=== PATIENT | female | born 1980 | race Caucasian/White ===

== ENCOUNTER → 2018-09-15 10:30 | Outpatient (CLI) | payer MEDICAID, SELFPAY ==
[2018-09-15 10:30] VITALS: BMI 25.7
[2018-09-18 09:51] LABS: HPV APTIMA, High Risk Negative (Negative)
--- OUTSIDE RECORDS SUMMARY | 2018-10-28 11:08 | XMS RPT_ITS ---
:1980 Author Organization OHIP Care Team Providers Name Role Phone DONALDO WARD CNP Attending Unavailable GODDARD DO, EMEKA Primary Care Unavailable DONALDO WARD CNP Attending Unavailable GODDARD DO, EMEKA Primary Care Unavailable GODDARD, EMEKA L Attending Unavailable GODDARD, EMEKA L Referring Unavailable GODDARD, EMEKA L Referring Unavailable Petey, Sharita Attending Unavailable Harlan, Sharita Referring Unavailable Goddard, Emeka Primary Care Unavailable Petey, Sharita Attending Unavailable Harlan, Sharita Referring Unavailable Goddard, Emeka Primary Care Unavailable Petey, Sharita Attending Unavailable Goddard, Emeka Referring Unavailable PROBLEMS PROBLEMS DATE TYPE CONDITION / CODE ATTENDING STATUS SOURCE 09/15/2018 Unknown Z12.4 - Encounter Petey, Sharita Active [place] for screening for Community malignant neoplasm [facility] cervix / Repository Z12.4(ICD-10) 09/15/2018 Unknown N92.1 - Excessive Harlan, Sharita Active [place] and frequent Community menstruation with [facility] irregular cycle / Repository N92.1(ICD-10) 09/15/2018 Unknown Z87.410 - Personal HarlanSharita farr Active [place] history of Community cervical dysplasia [facility] / Z87.410(ICD-10) Repository 07/23/2018 Active Unspecified NA Active [place] ovarian cyst, [facility] right side / [place] N83.201(ICD-10) Repository 02/13/2013 Active Hyperlipidemia, NA Active [facility] [place] unspecified / [facility] E78.5(ICD-10) [place] Repository 07/26/2018 Active Other fatigue / NA Active [place] R53.83(ICD-10) [facility] [place] Repository 12/17/2017 Admitting Fever, unspecified YOUNG DONALDO CORONADO Active [facility] Diagnosis / R50.9(ICD-10) [facility] Repository PROCEDURES PROCEDURES No Procedure Records FoundRESULTS RESULTS CNOV Observed: 10/04/2018 Status: COMPLETED Source: [place] 2:00 PM [facility] REPOSITORY Office Visit (UCWSTR) LING CHO ([id number]) 1980 F Date Time Provider Department 10/04/18 2:00 PM LILY CLARK (IVONNE) [facility] During your visit today, we recorded the following information about you: Temperature Pulse Respiration Blood pressure 98.3 degrees 94/minute 18/minute 120/80 Weight Last Period 64.4 kg 09/19/18 Lily Clark APRN.CNP 10/04/2018 2:24 PM Signed CC: Patient presents with: Cough Wheezing HPI: Ling Cho is a 38 year old female who presents to the office with complaint of respiratory symptoms for 5 days. Symptoms are worsening Associated symptoms includes nasal congestion, rhinorrhea, headache, cough and wheezing. Denies fever and dyspnea. Treatments tried include Guaifenesin/Mucinex with minor relief of symptoms. Sick contacts: unknown. History of asthma, frequent episodes of bronchitis, chronic bronchitis, bronchiectasis or COPD: No Smoker: Yes Seasonal/environmental allergies: No The ROS is otherwise negative. The patient's pmh, medications, allergies, and past visits are reviewed. PHYSICAL EXAM: BP 120/80 Pulse 94 Temp 36.8 ?C (98.3 ?F) (Left Tympanic) Resp 18 Wt 64.4 kg (142 lb) LMP 09/19/2018 (Approximate) SpO2 98% BMI 25.56 kg/m? General appearance: tired/ill appearing, in no acute distress Head: Normocephalic Eyes: conjunctiva pink and moist, no icterus, sclera white, non-injected Ears: Right ear: External ear/canal- Normal, TM - clear with good landmarks. Left ear: External ear/canal- Normal, TM - clear with good landmarks Nose: clear, no sinus tenderness. Oropharynx:No erythema, exudates or tonsillar hypertrophy. Neck:supple and positive findings: few small anterior cervical nodes Heart: Negative. RRR without obvious murmur, gallop, or rubs. No ectopy. Lungs: wheezing diffusely, no rales ASSESSMENT/PLAN: 1. Acute bronchitis, unspecified organism - ICD9: 466.0, ICD10: J20.9 - Discussed viral etiology and rationale for treatment. - Encouraged to increase fluids, rest, humidifier, expect to cough 2-3 weeks - Pharmacologic treatment: Prednisone 40mg qd x 5d. Side effects discussed in detail with patient including elevated blood sugars and GI irritation/bleeding., Albuterol aerosol 90 mcg IH - Symptomatic treatment prn analgesia and OTC cough/cold medication - Follow up in 1-2 weeks if symptoms do not resolve or they worsen with onset of onset of new fever, localized chest pains and new headache with increase in nasal congestion/drainage Prescription instructions reviewed with patient as applicable. Potential red flag symptoms discussed with the patient. Reviewed appropriate action plan to take if red flag symptoms occur. Patient agreeable to treatment plan. CASIE Meza APRN.CNP 10/04/2018 2:08 PM Signed Bronchitis is not usually treated with antibiotic medicines. That?s because bronchitis is almost always caused by a virus, and antibiotics only kill bacteria?not viruses. 1.) Get more rest than you usually do - this will speed your recovery. If you push hard with your usual busy schedule, you will be sicker longer. 2.) Drink a lot of water - enough to make you urinate every 2-3 hours (your urine should be a light yellow color). This helps thin the phlegm and sooth the airways. Gatorade (G2) is less in sugar and replaces your electrolytes if not eating well. 3.) Run a cool mist humidifier in your bedroom on high with the door closed. This is a natural way to decongest, and it helps lessen scratchy throats, nasal stuffiness and coughs. A good brand is [employer], which can be found at [employer] or [employer]. This is especially important if you do not have a humidifier on your furnace. 4) For cough-Mucinex 600-1200mg twice daily(plain) may help thin secretions so they are easier to cough up. May also use Robitussin cough syrup as needed (without DM). Those with high blood pressure may take Coricidin HBP. 5) For SOB/wheezing: Albuterol inhaler (if prescribed), follow prescription instructions. This medication helps by relaxing muscles in the airways and increasing air flow to the lungs 6) Prednisone (if prescribed): This is an anti-inflammatory medication which will help calm the inflamed bronchioles, increasing air flow to the lungs and reducing cough Cough following bronchitis can last up to 4-6 weeks but should slowly improve. If cough worsens or lasts longer than 4 weeks please call office at [phone] Referring Provider: SELF [[id number]] Allergies As of Date: 10/04/2018 Noted Allergy Reaction SEASONAL ALLERGIES 03/05/2013 14 - Other: See Comments Comments: rhinorrhea VICODIN (HYDROCODONE-ACETAMINOPHE*08/30/2009 8 - GI Upset Date Reviewed: 10/04/2018 Reviewed by: Lesley Vincent Ma - Fully Assessed Reason for Visit: Cough [28] Wheezing [181] Primary Visit Diagnosis:Acute bronchitis, unspecified organism [J20.9] Order(s):predniSONE (DELTASONE) 20 mg tabletTake 2 tablets by mouth once daily for 5 days.Disp: 10 tabletRfl: 0 albuterol HFA (PROAIR HFA) 90 mcg/actuation inhalerInhale 2 Puffs as instructed every 4 hours as needed.Disp: 1 InhalerRfl: 0 Prescriptions as of 10/04/2018 Sig: PROMETHAZINE 12.5 MG TABLET Take 1 tablet by mouth every * RIZATRIPTAN 5 MG DISINTEGRATI* Take 1 tablet by mouth as nee* ALBUTEROL SULFATE HFA 90 MCG/* Inhale 2 Puffs as instructed * PREDNISONE 20 MG TABLET Take 2 tablets by mouth once * Problem List As Of Date 10/04/2018 Noted Resolved Lumbago [M54.5] INVALID FOR*07/07/2014 Tension headache [G44.209] INVALID FOR*07/07/2014 Esophageal reflux [K21.9] INVALID FOR*07/07/2014 Abnormal pap INVALID FOR*05/19/2015 Depression, major (HCC) [F32.9] INVALID FOR*07/07/2014 More... Fatigue [R53.83] INVALID FOR* CECILIA III (cervical intraepithelial neoplasia gra*INVALID FOR*03/02/2013 Vitamin d deficiency [E55.9] INVALID FOR* Hyperlipidemia [E78.5] INVALID FOR* Low HDL (under 40) [E78.6] INVALID FOR* CECILIA II (cervical intraepithelial neoplasia II) *INVALID FOR*05/19/2015 More... Prior with placenta abruption, antepa*INVALID FOR*02/17/2014 More... History of cervical LEEP biopsy affecting care *INVALID FOR*02/17/2014 More... Tobacco use in [O99.330] INVALID FOR*02/17/2014 More... Patient requested diagnostic testing [Z01.89] INVALID FOR*02/17/2014 More... Supervision of other high-risk (V23.89*INVALID FOR*02/17/2014 History of intrauterine , currently *INVALID FOR*02/17/2014 More... Placenta previa [O44.00] INVALID FOR*02/17/2014 More... Prior with demise and current p*INVALID FOR*05/19/2015 More... Depression [F32.9] INVALID FOR*05/19/2015 More... History of cervical LEEP biopsy affecting care *INVALID FOR*05/19/2015 More... Tobacco smoking complicating [O99.330]INVALID FOR*05/19/2015 More... control [Z30.9] INVALID FOR* More... Rubella non-immune status, antepartum [O99.89, *INVALID FOR*05/19/2015 heart deceleration [VAU6847] INVALID FOR*05/19/2015 More... Chronic pelvic pain in female [R10.2, G89.29] INVALID FOR* Routine physical examination [Z00.00] INVALID FOR* Ovarian cyst, right [N83.201] INVALID FOR* Urinary frequency [R35.0] INVALID FOR* Migraine [G43.909] INVALID FOR* Other instructions from your clinician: Bronchitis is not usually treated with antibiotic medicines. That?s because bronchitis is almost always caused by a virus, and antibiotics only kill bacteria?not viruses. 1.) Get more rest than you usually do - this will speed your recovery. If you push hard with your usual busy schedule, you will be sicker longer. 2.) Drink a lot of water - enough to make you urinate every 2-3 hours (your urine should be a light yellow color). This helps thin the phlegm and sooth the airways. Gatorade (G2) is less in sugar and replaces your electrolytes if not eating well. 3.) Run a cool mist humidifier in your bedroom on high with the door closed. This is a natural way to decongest, and it helps lessen scratchy throats, nasal stuffiness and coughs. A good brand is [employer], which can be found at [employer] or [employer]. This is especially important if you do not have a humidifier on your furnace. 4) For cough-Mucinex 600-1200mg twice daily(plain) may help thin secretions so they are easier to cough up. May also use Robitussin cough syrup as needed (without DM). Those with high blood pressure may take Coricidin HBP. 5) For SOB/wheezing: Albuterol inhaler (if prescribed), follow prescription instructions. This medication helps by relaxing muscles in the airways and increasing air flow to the lungs 6) Prednisone (if prescribed): This is an anti-inflammatory medication which will help calm the inflamed bronchioles, increasing air flow to the lungs and reducing cough Cough following bronchitis can last up to 4-6 weeks but should slowly improve. If cough worsens or lasts longer than 4 weeks please call office at [phone] Prescriptions ordered this encounter Disp Refills Start End PREDNISONE 20 MG TABLET 10 t* 0 10/04/2018 10/09/2018 Route: ORAL Sig: Take 2 tablets by mouth once daily for 5 days. ALBUTEROL SULFATE HFA 90 MCG/ACTUATI* 1 In* 0 10/04/2018 Route: INHALATION Sig: Inhale 2 Puffs as instructed every 4 hours as needed. Encounter Status:Closed by LILY CLARK CNP on 10/04/18 PROGRESS Observed: 10/04/2018 Status: COMPLETED Source: [place] 1:[address] [facility] REPOSITORY HNO ID: [id number] Author: Lily (Ivonne) Tory Service: (none) Author Type: Nurse Practitioner Type: Progress Notes Filed: 10/04/2018 2:24 PM Note Text: CC: Patient presents with: Cough Wheezing HPI: Ling Cho is a 38 year old female who presents to the office with complaint of respiratory symptoms for 5 days. Symptoms are worsening Associated symptoms includes nasal congestion, rhinorrhea, headache, cough and wheezing. Denies fever and dyspnea. Treatments tried include Guaifenesin/Mucinex with minor relief of symptoms. Sick contacts: unknown. History of asthma, frequent episodes of bronchitis, chronic bronchitis, bronchiectasis or COPD: No Smoker: Yes Seasonal/environmental allergies: No The ROS is otherwise negative. The patient's pmh, medications, allergies, and past visits are reviewed. PHYSICAL EXAM: BP 120/80 Pulse 94 Temp 36.8 ?C (98.3 ?F) (Left Tympanic) Resp 18 Wt 64.4 kg (142 lb) LMP 09/19/2018 (Approximate) SpO2 98% BMI 25.56 kg/m? General appearance: tired/ill appearing, in no acute distress Head: Normocephalic Eyes: conjunctiva pink and moist, no icterus, sclera white, non-injected Ears: Right ear: External ear/canal- Normal, TM - clear with good landmarks. Left ear: External ear/canal- Normal, TM - clear with good landmarks Nose: clear, no sinus tenderness. Oropharynx:No erythema, exudates or tonsillar hypertrophy. Neck:supple and positive findings: few small anterior cervical nodes Heart: Negative. RRR without obvious murmur, gallop, or rubs. No ectopy. Lungs: wheezing diffusely, no rales ASSESSMENT/PLAN: 1. Acute bronchitis, unspecified organism - ICD9: 466.0, ICD10: J20.9 - Discussed viral etiology and rationale for treatment. - Encouraged to increase fluids, rest, humidifier, expect to cough 2-3 weeks - Pharmacologic treatment: Prednisone 40mg qd x 5d. Side effects discussed in detail with patient including elevated blood sugars and GI irritation/bleeding., Albuterol aerosol 90 mcg IH - Symptomatic treatment prn analgesia and OTC cough/cold medication - Follow up in 1-2 weeks if symptoms do not resolve or they worsen with onset of onset of new fever, localized chest pains and new headache with increase in nasal congestion/drainage Prescription instructions reviewed with patient as applicable. Potential red flag symptoms discussed with the patient. Reviewed appropriate action plan to take if red flag symptoms occur. Patient agreeable to treatment plan. Lily Clark APRN.INFORMATION TECHNOLOGY ARCHITECT PELVIC (NON ) Observed: 09/23/2018 Status: F Source: [place] 11:18 AM [facility] REPOSITORY [facility] Imaging Services [address] [place] [address] Pelvic (Non ) MR#: [id number] Acct: [id number] Name: LING CHO Larry Rep #: [id number] : 1980 F 38 From: Yobani Parker MD PCP: Emeka Dasilva DO Status: REG CLI Study: Pelvic (Non ) Date of Exam: 09/23/18 Exam# [id number] Ordering Dr: Sharita Angelo ACID MAKER-C STUDY: ULTRASOUND OF THE FEMALE PELVIS - COMPLETE REASON FOR EXAM: Female, 38 years old. Metromenorrhagia LMP: 09/18/2018 TECHNIQUE: Transabdominal and Transvaginal TECHNICAL QUALITY: Adequate. COMPARISON: None. FINDINGS: The uterus is anteverted and is in a midline position. The uterus measures 9.5 x 4.8 x 4.7 cm. Isoechoic structure in the cervical lumen measuring 15 x 9 x 9 mm. This could represent a cervical polyp. The endometrium measures 10.5 mm in thickness, and is hyperechoic. There is no demonstrated endometrial mass. There is no demonstrated myometrial mass. I.U.D. - The patient does not have an I.U.D. The right ovary is visualized. The right ovary measures 3.1 x 2.2 x 1.4 cm. A complex right ovary cyst is present measuring 1.5 x 1.3 x 1.3 cm. A simple right ovarian/paraovarian cyst is present measuring 1.8 x 1.8 x 1.6 cm. There is normal arterial and normal venous vascularity. The left ovary is visualized. The left ovary measures 3.3 x 2.3 x 1.7 cm. There is no left ovarian cyst or ovarian mass. There is no visualized left adnexal mass or complex lesion. There is normal arterial and normal venous vascularity. There is no fluid in the cul-de-sac. The pre void volume of the bladder was 324.85 ml. The post void volume of the bladder was ml. Polycystic ovary disease: No. US/Pelvic (Non ) IMPRESSION: Possible cervical polyp measuring up to 15 mm. Complex right ovary cyst measuring up to 15 mm. Simple right ovary/paraovarian cyst measuring up to 18 mm. Electronically Signed: Yobani Parker MD at 10:14 EST Tel , Service support , CC: STEFAN Angelo; Emeka Dasilva DO Motor Route Carrier: Signed TRANSVAGINAL Observed: 09/23/2018 Status: F Source: [place] NON- 11:18 AM [facility] REPOSITORY [facility] Imaging Services [address] [place] [address] Transvaginal Non- MR#: [id number] Acct: [id number] Name: LING CHO Larry Rep #: [id number] : 1980 F 38 From: Yobani Parker MD PCP: Emeka Dasilva DO Status: REG CLI Study: Transvaginal Non- Date of Exam: 09/23/18 Exam# [id number] Ordering Dr: Sharita Angelo ACID MAKER-C STUDY: ULTRASOUND OF THE FEMALE PELVIS - COMPLETE REASON FOR EXAM: Female, 38 years old. Metromenorrhagia LMP: 09/18/2018 TECHNIQUE: Transabdominal and Transvaginal TECHNICAL QUALITY: Adequate. COMPARISON: None. FINDINGS: The uterus is anteverted and is in a midline position. The uterus measures 9.5 x 4.8 x 4.7 cm. Isoechoic structure in the cervical lumen measuring 15 x 9 x 9 mm. This could represent a cervical polyp. The endometrium measures 10.5 mm in thickness, and is hyperechoic. There is no demonstrated endometrial mass. There is no demonstrated myometrial mass. I.U.D. - The patient does not have an I.U.D. The right ovary is visualized. The right ovary measures 3.1 x 2.2 x 1.4 cm. A complex right ovary cyst is present measuring 1.5 x 1.3 x 1.3 cm. A simple right ovarian/paraovarian cyst is present measuring 1.8 x 1.8 x 1.6 cm. There is normal arterial and normal venous vascularity. The left ovary is visualized. The left ovary measures 3.3 x 2.3 x 1.7 cm. There is no left ovarian cyst or ovarian mass. There is no visualized left adnexal mass or complex lesion. There is normal arterial and normal venous vascularity. There is no fluid in the cul-de-sac. The pre void volume of the bladder was 324.85 ml. The post void volume of the bladder was ml. Polycystic ovary disease: No. US/Transvaginal Non- IMPRESSION: Possible cervical polyp measuring up to 15 mm. Complex right ovary cyst measuring up to 15 mm. Simple right ovary/paraovarian cyst measuring up to 18 mm. Electronically Signed: Yobani Parker MD at 10:14 EST Tel , Service support , CC: STEFAN Angelo; Emeka Dasilva DO Motor Route Carrier: Signed COMMERCIAL HVAC TECHNICIAN OFFICE VISIT Observed: 09/15/2018 Status: F Source: [place] RE[place] 11:02 AM [facility] 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: No Is patient in pain?: Yes (has a fibroid and gets random pain) Pain scale (1-10): 4 Allergies hydrocodone bitartrate [From Vicodin] Allergy (Verified 09/15/18 10:32) Nausea/Vom/Diarrhea Medications norethindrone acetate 5 mg tablet 5 mg PO BID 21 Days #42 tab 09/15/18 [Rx Confirmed 09/15/18] rizatriptan 5 mg tablet 5 mg PO .PRN tab 09/15/18 [History Confirmed 09/15/18] Is last menstrual period known: Yes Last Menstral Period: 09/01/18 Post menopausal: No Patient : No : No PFSH Surgical History H/O tubal ligation (Acute) History of loop electrical excision procedure (LEEP) (Acute) Family History Mother Endometrial cancer Grandmother Endometrial cancer Unknown Endometrial cancer Social History number of children: 5 Smoking Status: Current every day smoker alcohol intake: never substance use type: does not use seatbelt use: always do you feel safe at home: Yes 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 States had same issue in October 2017 and happened 3 times and then was ok until July and now happening again. and denies STD concerns. States no exam at least 2 years(Dr. Badillo [facility]). History of LEEP 2013 for cervical dysplasia and negative paps since. Female Reproductive History Last Menstral Period: 09/01/18 Pregancy History 6 Elective abortions Hx Para 5 Spontaneous abortions Past Pregnancies Del. DatName GA/WeeksOutcome Route [facility] Sam LgAnestheRIel LocaProviderFOB e ht en th ia tn Unknown [place] 2002 ROS Const Constitutional: Reports system reviewed and no additional complaints, except as docu GI GI: Denies abdominal pain or change in bowel habits Exam Const General: cooperative, no acute distress General: bladder normal to palpation External Female Exam: normal external appearance, normal appearance of the urethra Urethra: normal appearance of the urethra Speculum Exam - Vagina: normal appearance of the vagina, normal vaginal discharge, nontender, no lesions Speculum Exam - Cervix: normal appearance of the cervix (pap collected), other (smooth, nonfriable) Bimanual Exam- Vagina AND Uterus: bladder normal to palpation, normal bimanual exam, uterine size normal, uterine shape normal, uterine mobility normal, uterus non-tender Bimanual Exam- Adnexa, other: normal adnexae, no adnexal masses, adnexae non-tender Assessment AND Plan Problems 1. Menorrhagia with irregular cycle N92.1 2. History of cervical dysplasia Z87.410 LEEP 2012 and neg pap since Plan Start Aygestin 5th day of next menses, take bid X 3 weeks to see if resolved irregular menstrual pattern Ultrasound PAP RTO 1 year,prn with problems Orders Orders: Medications New: Coding Level of Care Code Off vis,new,level 3 Diagnoses Menorrhagia with irregular cycle N92.1 History of cervical dysplasia Z87.410 09/15/18 1102 <Electronically signed by Sharita LYNNE> Date Sharita LYNNE Cosigner Signature: Date (if applicable) CC: PAP IG HPV APTIMA Collected: 09/15/2018 Status: F Source: [place] 16/18,45 10:30 AM [facility] REPOSITORY Order Comment: CYTOLOGY INFORMATION: - CLINICAL INFORMATION: - DATE LMP/MENOPAUSE: OTHER - COLLECTION VIAL: Thin Prep Vial - TELEVISION NEWS ANCHOR SOURCE: CERVICAL - COLLECTION TECHNIQUE: BRUSH/SPATULA Specimen Comment: [id number] Specimen Comment: Source.............Cervix Specimen Comment: No. of containers..01 ThinPrep Vial TYPE CODE TESTS RESULT OUT OF RANGE REFERENCE UNITS LAB L7400.0800 . Normal DIAGN Comment Result Comment: NEGATIVE FOR INTRAEPITHELIAL LESION AND MALIGNANCY. LAB L7400.0900 . Normal ADEQ Comment Result Comment: Satisfactory for evaluation. Endocervical and/or squamous metaplastic cells (endocervical component) are present. LAB L7400.1400 . Normal PERFORM Comment Result Comment: Karo Estrada, Knife Setter Grinder Machine (ASCP) LAB L7400.2575 . Normal TEST METHOD Comment Result Comment: This liquid based ThinPrep(R) pap test was screened with the use of an image guided system. LAB L7400.2600 . Normal . COMM LAB L7400.2700 . Normal PAPSMR Comment Result Comment: The Pap smear is a screening test designed to aid in the detection of premalignant and malignant conditions of the uterine cervix. It is not a diagnostic procedure and should not be used as the sole means of detecting cervical cancer. Both false-positive and false-negative reports do occur. LAB L7400.2760 Negative Normal HPV APTIMA, Negative HR Result Comment: This test detects fourteen high-risk HPV types (16/18/31/33/35/39/45/ 51/52/56/58/59/66/68) without differentiation. Performed at: - [facility] [id number] Snath Handle Assembler: Jazzmine Frazier MD, Phone: [phone] Performed at: =[facility] [address] [id number] Snath Handle Assembler: Jazzmine Frazier MD, Phone: [phone] Performed By: #### L7400.0280 #### [facility] (refer to report for specific site) refer to report for address and phone number PROGRESS Observed: 07/30/2018 Status: COMPLETED Source: [place] 9:56 AM [facility] REPOSITORY O ID: [id number] Author: Oziel Bean Service: (none) Author Type: Development Vice President Type: Progress Notes Filed: 07/30/2018 9:56 AM Note Text: Radiology Service Progress Note PATIENT NAME: Ling Cho DATE OF SERVICE: July 30, 2018 TIME: 9:56 AM PATIENT IDENTITY VERIFICATION COMPLETED USING TWO (2) METHODS: Patient confirmed name verbally and Date of . PATIENT GENDER DATA: Female. status: : No status: N/A PATIENT RELEVANT IMPLANT DATA REVIEWED: Not Applicable RADIOLOGY DEPARTMENT: Ultrasound PERIPHERAL IV DATA: Not applicable SIGNED BY: OZIEL BEAN RDMS RVHamilton July 30, 2018 9:56 AM US FEMALE PELVIS Observed: 07/30/2018 Status: F Source: [employer] 9:55 AM [facility] REPOSITORY * * *Final Report* * * DATE OF EXAM: Jul 30 2018 9:55AM [id number] - US FEMALE PELVIS [employer] [facility] / PROCEDURE REASON: Ovarian cyst, right * * * * Physician Interpretation * * * * EXAMINATION: TRANSVAGINAL AND LIMITED TRANSABDOMINAL PELVIC ULTRASOUND CLINICAL HISTORY: Right lower quadrant pain TECHNIQUE: Sonography of the pelvis was performed by transvaginal and transabdominal (limited) techniques. Images were obtained and stored in a permanent archive. MQ: UFP_1 COMPARISON: None RESULT: Uterus size: 8.6 x 5.7 x 4.5 cm -Orientation: Anteverted -Myometrium: Slightly inhomogeneous with a hypoechoic mass posterior to the endometrium at the level the fundus which measures 2.0 x 1.8 x 1.8 cm and is consistent with a fibroid. Suspect complex nabothian cyst at the lower uterine segment which is not clearly demonstrated to be within the endocervical canal. Canal. -Endometrial echo complex: 7.5 mm -Cervix: normal Right ovary: 2.7 x 1.9 x 1.8 cm. Normal sonographic appearance. There are normal follicular changes. Arterial vascular flow is identified. Left ovary: 3.1 x 2.5 x 2.4 cm. Normal sonographic appearance. There are normal follicular changes with a less than 2 cm dominant follicle. Arterial vascular flow is identified. Free fluid: None IMPRESSION: No acute process. Fundal fibroid Bilateral normal ovarian tissue with follicular changes and a dominant follicle within the left ovary. Motor Route Carrier: FAZAL Transcribe Date/Time: Jul 31 2018 4:51P Dictated by : RAYNE DEGROOT MD This examination was interpreted and the report reviewed and electronically signed by: RAYNE DEGROOT MD on Jul 31 2018 4:56PM EST [id number] US FEMALE PELVIS Observed: 07/30/2018 Status: F Source: [place] [employer] 9:55 AM [facility] REPOSITORY * * *Final Report* * * DATE OF EXAM: Jul 30 2018 9:55AM [id number] - US FEMALE PELVIS TRANSVAG / PROCEDURE REASON: Ovarian cyst, right * * * * Physician Interpretation * * * * EXAMINATION: TRANSVAGINAL AND LIMITED TRANSABDOMINAL PELVIC ULTRASOUND CLINICAL HISTORY: Right lower quadrant pain TECHNIQUE: Sonography of the pelvis was performed by transvaginal and transabdominal (limited) techniques. Images were obtained and stored in a permanent archive. MQ: UFP_1 COMPARISON: None RESULT: Uterus size: 8.6 x 5.7 x 4.5 cm -Orientation: Anteverted -Myometrium: Slightly inhomogeneous with a hypoechoic mass posterior to the endometrium at the level the fundus which measures 2.0 x 1.8 x 1.8 cm and is consistent with a fibroid. Suspect complex nabothian cyst at the lower uterine segment which is not clearly demonstrated to be within the endocervical canal. Canal. -Endometrial echo complex: 7.5 mm -Cervix: normal Right ovary: 2.7 x 1.9 x 1.8 cm. Normal sonographic appearance. There are normal follicular changes. Arterial vascular flow is identified. Left ovary: 3.1 x 2.5 x 2.4 cm. Normal sonographic appearance. There are normal follicular changes with a less than 2 cm dominant follicle. Arterial vascular flow is identified. Free fluid: None IMPRESSION: No acute process. Fundal fibroid Bilateral normal ovarian tissue with follicular changes and a dominant follicle within the left ovary. Motor Route Carrier: FAZAL Transcribe Date/Time: Jul 31 2018 4:51P Dictated by : RAYNE DEGROOT MD This examination was interpreted and the report reviewed and electronically signed by: RAYNE DEGROOT MD on Jul 31 2018 4:56PM EST [id number] URINALYSIS WITH Collected: 07/26/2018 Status: F Source: [facility] 9:48 AM [facility] REPOSITORY TYPE CODE TESTS RESULT OUT OF RANGE REFERENCE UNITS LAB UCOL Yellow Color Yellow LAB [facility] Clear Clarity Abnormal Turbid Alert LAB UGLUC Negative mg/dL Glucose, Urine Negative LAB UBIL Negative Bilirubin, Urine Negative LAB UKET Negative Ketones, Urine Negative LAB USPG 1.005-1.030 Specific [place], Ur 1.024 LAB UHGB Negative Abnormal Hemoglobin/Blood, 1+ Alert Ur LAB UPH 4.5-8.0 pH 5.0 LAB UPROT Negative mg/dL Protein, Urine Negative LAB UUROB Normal Urobilinogen Normal LAB UNITR Negative Nitrites Negative LAB ULKEST Negative Leukest Abnormal 2+ Alert LAB UCOM Comments SEE COMMENT Result Comment: N/A LAB UMCOM Urine SEE Sanjay Comment COMMENT Result Comment: N/A LAB UWBC 0-5 /HPF Abnormal WBC Alert 11-25 LAB URBC 0-3 /HPF Abnormal RBC Alert 11-25 LAB UEPI /HPF Epithelial Cells SEE COMMENT Result Comment: Few Squamous Epithelial Cells Performed By: #### UAWMIC #### [facility] [address] [place] [id number] CBC Collected: 07/26/2018 Status: F Source: [place] 9:45 AM [facility] REPOSITORY TYPE CODE TESTS RESULT OUT OF REFERENCE UNITS RANGE LAB WBC 3.70-11.00 k/uL WBC 9.53 LAB RBC 3.90-5.20 m/uL RBC 4.79 LAB HGB 11.5-15.5 g/dL Hemoglobin 14.1 LAB HCT 36.0-46.0 % Hematocrit 44.1 LAB MCV 80.0-100.0 fL MCV 92.1 LAB MCH 26.0-34.0 pG MCH 29.4 LAB MCHC 30.5-36.0 g/dL MCHC 32.0 LAB RDWCV 11.5-15.0 % RDW-CV 12.3 LAB PLTCT 150-400 k/uL Platelet Count 305 LAB MPV 9.0-12.7 fL MPV 10.6 LAB ABSNUC <0.01 k/uL Absolute nRBC <0.01 Performed By: #### CBC, CMP, LIPB, TSH #### [facility] [address] [place], [place] [address] COMP METABOLIC PANEL Collected: 07/26/2018 Status: F Source: [place] 9:[address] [facility] REPOSITORY TYPE CODE TESTS RESULT OUT OF REFERENCE UNITS RANGE LAB TP 6.3-8.0 g/dL Protein, Total 7.2 LAB ALB 3.9-4.9 g/dL Albumin 4.0 LAB CA 8.5-10.2 mg/dL Calcium, Total 8.9 LAB TBIL 0.2-1.3 mg/dL Bilirubin, Total 0.2 LAB ALKP 34-123 U/L Alkaline Phosphatase 74 LAB AST 13-35 U/L AST 15 LAB GLU 74-99 mg/dL Glucose 85 Result Comment: The [place] Diabetes Association (ADA) provides guidance for cutoff values for fasting glucose and random glucose. The ADA defines fasting as no caloric intake for at least 8 hours. Fas ting plasma glucose results between 100 to 125 mg/dL indicate increased risk for diabetes (prediabetes). Fasting plasma glucose results greater than or equal to 126 mg/dL meet the criteria for diagnosis of diabetes. In the absence of unequivocal hyperglycemia, results should be confirmed by repeat testing. In a patient with classic symptoms of hyperglycemia or hyperglycemic crisis, random plasma glucose results greater than or equal to 200 mg/dL meet the criteria for diagnosis of diabetes. Reference: Standards of Medical Care in Diabetes 2016, [place] [employer]. Diabetes Care. 2016.39(Suppl 1). LAB BUN 7-21 mg/dL BUN 9 LAB CRET 0.58-0.96 mg/dL Creatinine 0.81 LAB NA 136-144 mmol/L Sodium 138 LAB K 3.7-5.1 mmol/L Potassium 4.6 LAB CL 97-105 mmol/L Chloride 104 LAB CO2 22-30 mmol/L CO2 22 LAB AGAP 9-18 mmol/L Anion Gap 12 LAB ALT 7-38 U/L ALT 9 LAB GFRAA eGFR- Amer. >60 LAB GFRNAA . eGFR-All Other Races >60 Result Comment: eGFR (Estimated GFR) Units of measure: mL/min/1.73 meters squared eGFR is derived from the reexpressed MDRD Study equation using the following parameters: serum creatinine, age, gender and race. The creatinine assay has been calibrated to be traceable to IDMS. An eGFR <60 mL/min/1.73m2 for >3 months is consistent with chronic kidney disease. Refer to KDOQI guidelines for clinical interpretation. In patients with unstable renal function, e.g. those with acute kidney injury, the eGFR may not accurately reflect actual GFR. Performed By: #### CBC, CMP, LIPB, TSH #### [facility] [address] [place], [place] [address] LIPID PANEL, BASIC Collected: 07/26/2018 Status: F Source: [place] 9:[address] [facility] REPOSITORY TYPE CODE TESTS RESULT OUT OF REFERENCE UNITS RANGE LAB CHOL <200 mg/dL Cholesterol 196 Result Comment: <200 mg/dL, Desirable 200-239 mg/dL, Borderline high >239 mg/dL, High LAB TRIGLY <150 mg/dL Triglyceride High 255 Result Comment: <150 mg/dL, Normal 150-199 mg/dL, Borderline high 200-499 mg/dL, High >499 mg/dL, Very high LAB HDL >39 mg/dL HDL-Cholesterol Low 30 Result Comment: 40-59 mg/dL, Acceptable >59 mg/dL, High: Negative risk factor for coronary heart disease <40 mg/dL, Low: Positive risk factor for coronary heart disease LAB LDL <100 mg/dL LDL-Cholesterol High 115 Result Comment: <100 mg/dL, Optimal 100-129 mg/dL, Near optimal/above optimal 130-159 mg/dL, Borderline high 160-189 mg/dL, High >189 mg/dL, Very high Secondary prevention optimal LDL Cholesterol levels are recommended to be < 70 mg/dL LAB NONHDL <130 mg/dL Non HDL High Cholesterol 166 Result Comment: <130 mg/dL, Optimal 130-159 mg/dL, Near optimal/above optimal 160-189 mg/dL, Borderline high 190-219 mg/dL, High >219 mg/dL, Very high Secondary prevention optimal non HDL Cholesterol levels are recommended to be < 100 mg/dL LAB FT hrs Fasting Time 12 LAB VLDL <30 mg/dL High VLDL Cholesterol 51 LAB TCHDL <5.10 High TC:HDL Ratio 6.53 LAB LDLHDL <2.54 High LDL:HDL Ratio 3.83 Result Comment: Reference: 1. National Cholesterol Education Program ATP III Guideline At-A-Glance Quick Desk Reference: National Heart, Lung, and Blood [place]. National Institutes of Health. 2001: NIH Publication No. 01-3305. 2. An International Atherosclerosis Society position paper: global recommendations for the management of dyslipidemia: executive summary, Atherosclerosis. 2014: 232(2):410-413. Performed By: #### CBC, CMP, LIPB, TSH #### [facility] [address] [place], [place] [address] TSH Collected: 07/26/2018 Status: F Source: [place] 9:45 AM [facility] REPOSITORY TYPE CODE TESTS RESULT OUT OF RANGE REFERENCE UNITS LAB TSH 0.400-5.500 uU/mL TSH 1.850 Result Comment: If the patient is , TSH reference range varies by gestational period: First Trimester 0.100-2.500 uU/mL Second Trimester 0.200-3.000 uU/mL Third Trimester 0.300-3.000 uU/mL References: 1. Ma L, Priti M, John EK, et al. Management of Thyroid Dysfunction during and : An Endocrine Society Clinical Practice Guideline. J Clin Endocrinol Metab, 2012:97:6237-3282. 2. Dusty YOO. Overview of thyroid disease in . UpToDate. 2016. Accessed on April 06, 2016. Performed By: #### CBC, CMP, LIPB, TSH #### [facility] [address] [place], [place] [address] PROGRESS Observed: 07/23/2018 Status: COMPLETED Source: [place] 4:17 PM [facility] REPOSITORY HNO ID: [id number] Author: Emeka Goddard Service: (none) Author Type: Physician Type: Progress Notes Filed: 07/23/2018 4:23 PM Note Text: CC: Ling Cho is a 38 year old female who presents to the office for physical HPI: + fatigue symptoms Right lower abdominal / pelvic pain, comes and goes since last year, had a pelvic US 1 year ago and had a right paraovarian cyst and small uterine fibroid, didn't had an US follow up since she moved to [place] for 9 months and now is back to [facility] to live. No vomiting with it, no menses changes, just finished menses yesterday. Has monthly cycles for menses that aren't changed much Migraine headaches 1 every 2-3 months, usually last <24 hours, sometimes not relieved by OTC migraine excedrine medication, asking for alternative, usually on right side of head and pounding and associated with light or noise sensitivity, no increased frequency of headaches. Mood, off all her medications per Psychiastrist, stable PAST MEDICAL HISTORY Diagnosis Date - Abnormal glandular Papanicolaou smear of cervix Abn. 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 since then PAST SURGICAL HISTORY Procedure Laterality Date - CERVIX UTERI CONIZA LP ELCTRO EXCI 01/2013 LEEP-Cervix - LIGATE FALLOPIAN TUBE Tubal ligation Social History: Social History Substance Use Topics - Smoking status: Current Every Day Smoker Packs/day: 0.30 Years: 15.00 Types: Cigarettes - Smokeless tobacco: Never Used Comment: 5 cigarettes per day - Alcohol use No Comment: <1/week FAMILY HISTORY Problem Relation Age of Onset - Cancer Father lung cancer, smoker - Heart Father [place] age 45 - Diabetes Maternal Grandfather - Hypertension Maternal Grandfather Current Outpatient prescriptions: rizatriptan ([employer]) 5 mg disintegrating tablet Take 1 tablet by mouth as needed for Migraine Headache (see administration instructions). For migraine headache, May repeat in 2 hours if needed promethazine (PHENERGAN) 12.5 mg tablet Take 1 tablet by mouth every 6 hours as needed for Nausea/Vomiting. Allergies: ALLERGIES Allergen Reactions - Seasonal Allergies Other: See Comments rhinorrhea - Vicodin [Hydrocodon* GI Upset ROS See HPI PE: 07/23/18 1545 BP: 110/60 Pulse: 80 Resp: 16 Temp: 36.7 ?C (98 ?F) TempSrc: Right Tympanic Weight: 65.3 kg (144 lb) Height: 158.8 cm (5' 2.5) Gen: AANDO, NAD, non-toxic appearing, Pleasant, cooperative HEENT: NT/AC, PERRLA, EOMs intact b/l, nares clear and patent b/l, pharynx without erythema, exudate or lesions. Uvula midline. EACs without erythema or debris. TMs pearly headley with intact landmarks b/l. Neck: supple, No cervical LAD, no thyromegaly, no carotid bruits CV: RRR, normal S1 and S2, no murmurs, no gallops, no rubs, Pulses 2+ and symmetric in UE and LE b/l Lungs: normal respiratory effort, CTA b/l, no wheezing or rhonchi or rales Abd: soft, mild lower abdominal TTP, ND, +BS, no hepatosplenomegaly MS: FROM all 4 extremities Neuro: CN II-XII intact b/l, strength 5/5 b/l UE and LE, DTRs 2/4 UE and LE, sensation intact. Skin: warm, dry, intact, No rashes or lesions on exposed skin. Several tattoos and piercings ASSESSMENT/PLAN: 1. Routine physical examination - ICD9: V70.0, ICD10: Z00.00 (primary diagnosis) - Encouraged monthly Breast Self Exam - Recommended calcium intake with supplements or by diet (goal of 9020-1695 mg/day - Recommended regular aerobic exercise. - Follow up for annual exam in one year. 2. Other migraine without status migrainosus, not intractable - ICD9: 346.80, ICD10: G43.809 -= rx prn as below, no increase of frequency - RIZATRIPTAN 5 MG DISINTEGRATING TABLET - PROMETHAZINE 12.5 MG TABLET 3. Vitamin D deficiency - ICD9: 268.9, ICD10: E55.9 - recheck labs 4. Other fatigue - ICD9: 780.79, ICD10: R53.83 - recheck labs - CBC - COMP METABOLIC PANEL - TSH BLD 5. Hyperlipidemia, unspecified hyperlipidemia type - ICD9: 272.4, ICD10: E78.5 - to be determined upon return of lab results - Encouraged following a low fat, low cholesterol diet. - Discussed the benefits of regular aerobic exercise and weight loss. - LIPID PANEL BASIC 6. Urinary frequency - ICD9: 788.41, ICD10: R35.0 - URINALYSIS WITH MICROSCOPIC 7. Ovarian cyst, right - ICD9: 620.2, ICD10: N83.201 - recheck US, also with small fibroid - US FEMALE PELVIS TRANSABD LTD - US FEMALE PELVIS TRANSVAG Emeka Goddard DO To ER if develops chest pain, shortness of breath, or severe worsening of symptoms. Discussed risks, benefits, alternatives, and potential side effects of medications. Patient expressed understanding and agreed with the plan. Emeka Goddard DO [address] [place] [address] CNOV Observed: 07/23/2018 Status: COMPLETED Source: [place] 3:40 PM [facility] REPOSITORY Office Visit (FAMPWS) LING CHO ([id number]) 1980 F Date Time Provider Department 07/23/18 3:40 PM [facility] During your visit today, we recorded the following information about you: Temperature Pulse Respiration Blood pressure 98 degrees 80/minute 16/minute 110/60 Weight Height Last Period 65.3 kg 1.588 m 07/17/18 Emeka Goddard DO 07/23/2018 4:23 PM Signed CC: Ling Cho is a 38 year old female who presents to the office for physical HPI: + fatigue symptoms Right lower abdominal / pelvic pain, comes and goes since last year, had a pelvic US 1 year ago and had a right paraovarian cyst and small uterine fibroid, didn't had an US follow up since she moved to [place] for 9 months and now is back to [facility] to live. No vomiting with it, no menses changes, just finished menses yesterday. Has monthly cycles for menses that aren't changed much Migraine headaches 1 every 2-3 months, usually last <24 hours, sometimes not relieved by OTC migraine excedrine medication, asking for alternative, usually on right side of head and pounding and associated with light or noise sensitivity, no increased frequency of headaches. Mood, off all her medications per Psychiastrist, stable PAST MEDICAL HISTORY Diagnosis Date - Abnormal glandular Papanicolaou smear of cervix Abn. 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 since then PAST SURGICAL HISTORY Procedure Laterality Date - CERVIX UTERI CONIZA LP ELCTRO EXCI 01/2013 LEEP-Cervix - LIGATE FALLOPIAN TUBE Tubal ligation Social History: Social History Substance Use Topics - Smoking status: Current Every Day Smoker Packs/day: 0.30 Years: 15.00 Types: Cigarettes - Smokeless tobacco: Never Used Comment: 5 cigarettes per day - Alcohol use No Comment: <1/week FAMILY HISTORY Problem Relation Age of Onset - Cancer Father lung cancer, smoker - Heart Father [place] age 45 - Diabetes Maternal Grandfather - Hypertension Maternal Grandfather Current Outpatient prescriptions: rizatriptan ([employer]) 5 mg disintegrating tablet Take 1 tablet by mouth as needed for Migraine Headache (see administration instructions). For migraine headache, May repeat in 2 hours if needed promethazine (PHENERGAN) 12.5 mg tablet Take 1 tablet by mouth every 6 hours as needed for Nausea/Vomiting. Allergies: ALLERGIES Allergen Reactions - Seasonal Allergies Other: See Comments rhinorrhea - Vicodin [Hydrocodon* GI Upset ROS See HPI PE: 07/23/18 1545 BP: 110/60 Pulse: 80 Resp: 16 Temp: 36.7 ?C (98 ?F) TempSrc: Right Tympanic Weight: 65.3 kg (144 lb) Height: 158.8 cm (5' 2.5) Gen: AANDO, NAD, non-toxic appearing, Pleasant, cooperative HEENT: NT/AC, PERRLA, EOMs intact b/l, nares clear and patent b/l, pharynx without erythema, exudate or lesions. Uvula midline. EACs without erythema or debris. TMs pearly headley with intact landmarks b/l. Neck: supple, No cervical LAD, no thyromegaly, no carotid bruits CV: RRR, normal S1 and S2, no murmurs, no gallops, no rubs, Pulses 2+ and symmetric in UE and LE b/l Lungs: normal respiratory effort, CTA b/l, no wheezing or rhonchi or rales Abd: soft, mild lower abdominal TTP, ND, +BS, no hepatosplenomegaly MS: FROM all 4 extremities Neuro: CN II-XII intact b/l, strength 5/5 b/l UE and LE, DTRs 2/4 UE and LE, sensation intact. Skin: warm, dry, intact, No rashes or lesions on exposed skin. Several tattoos and piercings ASSESSMENT/PLAN: 1. Routine physical examination - ICD9: V70.0, ICD10: Z00.00 (primary diagnosis) - Encouraged monthly Breast Self Exam - Recommended calcium intake with supplements or by diet (goal of 1115-4100 mg/day - Recommended regular aerobic exercise. - Follow up for annual exam in one year. 2. Other migraine without status migrainosus, not intractable - ICD9: 346.80, ICD10: G43.809 -= rx prn as below, no increase of frequency - RIZATRIPTAN 5 MG DISINTEGRATING TABLET - PROMETHAZINE 12.5 MG TABLET 3. Vitamin D deficiency - ICD9: 268.9, ICD10: E55.9 - recheck labs 4. Other fatigue - ICD9: 780.79, ICD10: R53.83 - recheck labs - CBC - COMP METABOLIC PANEL - TSH BLD 5. Hyperlipidemia, unspecified hyperlipidemia type - ICD9: 272.4, ICD10: E78.5 - to be determined upon return of lab results - Encouraged following a low fat, low cholesterol diet. - Discussed the benefits of regular aerobic exercise and weight loss. - LIPID PANEL BASIC 6. Urinary frequency - ICD9: 788.41, ICD10: R35.0 - URINALYSIS WITH MICROSCOPIC 7. Ovarian cyst, right - ICD9: 620.2, ICD10: N83.201 - recheck US, also with small fibroid - US FEMALE PELVIS TRANSABD LTD - US FEMALE PELVIS TRANSVAG Emeka Goddard DO To ER if develops chest pain, shortness of breath, or severe worsening of symptoms. Discussed risks, benefits, alternatives, and potential side effects of medications. Patient expressed understanding and agreed with the plan. Emeka Goddard DO [address] [place] [address] Allergies As of Date: 07/23/2018 Noted Allergy Reaction SEASONAL ALLERGIES 03/05/2013 14 - Other: See Comments Comments: rhinorrhea VICODIN (HYDROCODONE-ACETAMINOPHE*08/30/2009 8 - GI Upset Date Reviewed: 07/23/2018 Reviewed by: Elizabeth Sweeney LPN - Fully Assessed Reason for Visit: Physical [83] Primary Visit Diagnosis:Routine physical examination [Z00.00] Other Visit Diagnoses:Other migraine without status migrainosus, not intractable [G43.809] Vitamin D deficiency [E55.9] Other fatigue [R53.83] Hyperlipidemia, unspecified hyperlipidemia type [E78.5] Urinary frequency [R35.0] Ovarian cyst, right [N83.201] Order(s):rizatriptan ([employer]) 5 mg disintegrating tabletTake 1 tablet by mouth as needed for Migraine Headache (see administration instructions). For migraine headache, May repeat in 2 hours if neededDisp: 12 tabletRfl: 3 promethazine (PHENERGAN) 12.5 mg tabletTake 1 tablet by mouth every 6 hours as needed for Nausea/Vomiting.Disp: 20 tabletRfl: 4 CBC [SQCBC] Order #: [id number] FUTURE COMP METABOLIC PANEL [SQCMP] Order #: [id number] FUTURE TSH BLD [SQTSH] Order #: [id number] FUTURE URINALYSIS WITH MICROSCOPIC [SQUAWMIC] Order #: [id number] FEMALE PELVIS TRANSABD LTD [4590350] Order #: [id number] FUTURE FEMALE PELVIS TRANSVAG [[id number]] Order #: [id number] FUTURE LIPID PANEL BASIC [SQLIPB] Order #: [id number] FUTURE Prescriptions as of 07/23/2018 Sig: RIZATRIPTAN 5 MG DISINTEGRATI* Take 1 tablet by mouth as nee* PROMETHAZINE 12.5 MG TABLET Take 1 tablet by mouth every * Medication notes this encounter PAROXETINE 20 MG TABLET >> Elizabeth Sweeney LPN 07/23/2018 3:47 PM >> ELIZABETH SWEENEY LPN SatJul 23, 2018 3:47 PM finished DULOXETINE 60 MG CAPSULE,DELAYED RELEASE >> Elizabeth Sweeney LPN 07/23/2018 3:47 PM >> ELIZABETH SWEENEY LPN SatJul 23, 2018 3:47 PM Finished CLONAZEPAM 0.5 MG TABLET >> Elizabeth Sweeney LPN 07/23/2018 3:47 PM >> ELIZABETH SWEENEY LPN SatJul 23, 2018 3:47 PM Finished Problem List As Of Date 07/23/2018 Noted Resolved Lumbago [M54.5] INVALID FOR*07/07/2014 Tension headache [G44.209] INVALID FOR*07/07/2014 Esophageal reflux [K21.9] INVALID FOR*07/07/2014 Abnormal pap INVALID FOR*05/19/2015 Depression, major (HCC) [F32.9] INVALID FOR*07/07/2014 More... Fatigue [R53.83] INVALID FOR* CECILIA III (cervical intraepithelial neoplasia gra*INVALID FOR*03/02/2013 Vitamin d deficiency [E55.9] INVALID FOR* Hyperlipidemia [E78.5] INVALID FOR* Low HDL (under 40) [E78.6] INVALID FOR* CECILIA II (cervical intraepithelial neoplasia II) *INVALID FOR*05/19/2015 More... Prior with placenta abruption, antepa*INVALID FOR*02/17/2014 More... History of cervical LEEP biopsy affecting care *INVALID FOR*02/17/2014 More... Tobacco use in [O99.330] INVALID FOR*02/17/2014 More... Patient requested diagnostic testing [Z01.89] INVALID FOR*02/17/2014 More... Supervision of other high-risk (V23.89*INVALID FOR*02/17/2014 History of intrauterine , currently *INVALID FOR*02/17/2014 More... Placenta previa [O44.00] INVALID FOR*02/17/2014 More... Prior with demise and current p*INVALID FOR*05/19/2015 More... Depression [F32.9] INVALID FOR*05/19/2015 More... History of cervical LEEP biopsy affecting care *INVALID FOR*05/19/2015 More... Tobacco smoking complicating [O99.330]INVALID FOR*05/19/2015 More... control [Z30.9] INVALID FOR* More... Rubella non-immune status, antepartum [O99.89, *INVALID FOR*05/19/2015 heart deceleration [SBT1418] INVALID FOR*05/19/2015 More... Chronic pelvic pain in female [R10.2, G89.29] INVALID FOR* Routine physical examination [Z00.00] INVALID FOR* Ovarian cyst, right [N83.201] INVALID FOR* Urinary frequency [R35.0] INVALID FOR* Migraine [G43.909] INVALID FOR* Prescriptions ordered this encounter Disp Refills Start End RIZATRIPTAN 5 MG DISINTEGRATING TABL* 12 t* 3 07/23/2018 Class: Print RX Route: ORAL Sig: Take 1 tablet by mouth as needed for Migraine Headache (see administration instructions). For migraine headache, May repeat in 2 hours if needed PROMETHAZINE 12.5 MG TABLET 20 t* 4 07/23/2018 Route: ORAL Sig: Take 1 tablet by mouth every 6 hours as needed for Nausea/Vomiting. Medications Discontinued During This Encounter PARoxetine (PAXIL) 20 mg tablet 07/23/2018 Class: Historical Med Route: ORAL Sig: Take 20 mg by mouth once daily. Disc: Reason for discontinue is not on file. clonazePAM (KLONOPIN) 0.5 mg tablet 07/23/2018 Class: Historical Med Route: ORAL Sig: Take 0.5 mg by mouth twice daily as needed. Disc: Reason for discontinue is not on file. DULoxetine (CYMBALTA) 60 mg capsule 07/23/2018 Class: Historical Med Route: ORAL Sig: Take 60 mg by mouth once daily. Disc: Reason for discontinue is not on file. Encounter Status:Closed by EMEKA GODDARD DO on 07/23/18 Observed: 12/17/2017 Status: F Source: [facility] 10:32 AM FOUNDATION REPOSITORY . MICRO - Microbiology PROCEDURE: Culture Beta Strep Only [*1] SOURCE: Throat BODY SITE: COLLECTED DATE/TIME: 12/17/2017 10:32 EST RECEIVED DATE/TIME: 12/17/2017 17:30 EST START DATE/TIME: 12/17/2017 17:30 EST FREE TEXT SOURCE: FINAL REPORTS Final Report [] Verified Date/Time/Personnel: 12/19/2017 07:15 EST No Beta Strep isolated at 48hrs. Sensitivity testing not indicated. PRELIMINARY REPORTS Preliminary Report [] Verified Date/Time/Personnel: 12/18/2017 09:50 EST No beta Strep isolated at 24 hours. Performing Locations *1: This test was performed at: [facility], [address] [place] [address], [phone] , [facility] Performed By: #### BSO #### [place] [address] ALLERGIES ALLERGIES DATE TYPE / CODE NAME / CODE REACTION SEVERITY SOURCE 09/15/2018 Drug hydrocodone Nausea/Vom/Diar Unknown [place] Allergy/416 bitartrate/[id number] [facility] [address]77([place] [address](RXNORM) [facility] ED CT) Repository 03/05/2013 Environ/420 SEASONAL ALLERGIES OTHER: SEE C [facility] [id number](SNOM [place] [facility] CT) Repository 08/30/2009 DRUG/450446 HYDROCODONE-ACETAM GI UPSET [facility] 003(SNOMED INOPHEN [facility] [place] [facility]) Repository ENCOUNTERS ENCOUNTERS ADMIT/DISCHARGE ACCOUNT NUMBER ADMITTING ENCOUNTER LOCATION SOURCE CLASS 10/04/2018/10/06/20 [id number] Ambulatory [address] Repository 09/23/2018 [id number] [facility]ulatory [facility] ding:US Repository 09/15/2018 [id number] [facility] ding:LABSPEC Repository 09/15/2018/09/15/20 [id number] Ambulatory BMSBuilding: [address] Repository 07/30/2018/07/30/20 [id number] Ambulatory [address] Repository 07/26/2018/07/26/20 [id number] Ambulatory [address] Repository 07/23/2018/07/24/20 [id number] Ambulatory [address] Repository 12/17/2017/12/22/19 [id number] Ambulatory [address] Health :[facility] [place] Repository 12/17/2017/12/17/19 [id number] Ambulatory ABuilding:[address] Repository PAYERS PAYERS ENCOUNTER GUARANTOR PAYER SUBSCRIBER SOURCE 09/23/2018 KEVIN [id number] Primary LING L [place] Insurance:CARESOURCEP ARIASDOB: [facility] Number: [id number] [address]Gjc: [phone]) [id number] Repository [phone] () Date:2018-09-15[address]ATTN: [place] [address]IA: 09/23/2018 Secondary NOT GIVENUNK [place] Insurance:SELF PAY [facility] Number: Effective Repository Date:2018-09-15 09/15/2018 KEVINGUS [id number] Primary LING ARIROSIEDOB: [place] Insurance:CARESOURCEP [id number] [facility] Number: Hospital [address]Oqv: (250) [id number] Repository [phone] () Date:2018-09-15[address]ATTN: [place] [address]KY: 09/15/2018 Secondary NOT GIVENUNK [place] Insurance:SELF PAY [facility] Number: Effective Repository Date:2018-09-15 09/15/2018 Kevingus [id number] Primary LING ARIASDOB: Juan Jose [facility] Insurance:CARESOURCEP [id number] [facility] Number: Hospital [address]Xie: [phone]) [id number] Repository [phone] () Date:2018-09-03[address]ATTN: [place] [address]QC: 09/15/2018 Secondary NOT GIVENUNK [place] Insurance:SELF PAY [facility] Number: Effective Repository Date:2018-09-15 12/17/2017 LING L [facility]ING L [facility] Insurance:CARESOURCE ARIASDOB: [facility] [id number] [facility] [address] [id number] Number: [address] [facility] [place] [id number] [place], [place] [address]Jfi: ([phone]) Date:2017-12-17Tel: () [id number] [phone] Name:[address] (HP)Tel: [phone], [place] [address] (WP) [phone]: 12/17/2017 LING Juarez [facility] LING Juarez [facility] [id number] [facility] [address] [id number] Repository [facility] Number: [address] [place] [id number], [place] [address]Qxt: [phone]) Date:2017-12-1776278Nti: () [id number] Name:[address] (HP)Tel: [phone], [place] [address] (WP) [phone]:
== END ==
PROVIDERS: Family Provider Student in an Organized Health Care Education/Training Program; PCP Student in an Organized Health Care Education/Training Program; Referring Provider Nurse Practitioner Women's Health; Visit Provider Nurse Practitioner Women's Health
DX: Z12.4 Encounter for screening for malignant neoplasm of cervix (principal)
CPT/HCPCS: 87624; 88175; G0145

== ENCOUNTER → 2018-09-23 11:15 | Outpatient (CLI) | payer MEDICAID, SELFPAY ==
[2018-09-15 10:30] VITALS: BMI 25.7
--- NOTE | 2018-09-23 11:18 | US_ITS ---
STUDY: ULTRASOUND OF THE FEMALE PELVIS - COMPLETE REASON FOR EXAM: Female, 38 years old. Metromenorrhagia LMP: 09/18/2018 TECHNIQUE: Transabdominal and Transvaginal TECHNICAL QUALITY: Adequate. COMPARISON: None. FINDINGS: The uterus is anteverted and is in a midline position. The uterus measures 9.5 x 4.8 x 4.7 cm. Isoechoic structure in the cervical lumen measuring 15 x 9 x 9 mm. This could represent a cervical polyp. The endometrium measures 10.5 mm in thickness, and is hyperechoic. There is no demonstrated endometrial mass. There is no demonstrated myometrial mass. I.U.D. - The patient does not have an I.U.D. The right ovary is visualized. The right ovary measures 3.1 x 2.2 x 1.4 cm. A complex right ovary cyst is present measuring 1.5 x 1.3 x 1.3 cm. A simple right ovarian/paraovarian cyst is present measuring 1.8 x 1.8 x 1.6 cm. There is normal arterial and normal venous vascularity. The left ovary is visualized. The left ovary measures 3.3 x 2.3 x 1.7 cm. There is no left ovarian cyst or ovarian mass. There is no visualized left adnexal mass or complex lesion. There is normal arterial and normal venous vascularity. There is no fluid in the cul-de-sac. The pre void volume of the bladder was 324.85 ml. The post void volume of the bladder was ml. Polycystic ovary disease: No. US/Transvaginal Non- IMPRESSION: Possible cervical polyp measuring up to 15 mm. Complex right ovary cyst measuring up to 15 mm. Simple right ovary/paraovarian cyst measuring up to 18 mm. Electronically Signed: Yobani Parker MD at 10:14 EST Tel , Service support ,
--- NOTE | 2018-09-23 11:18 | US_ITS ---
STUDY: ULTRASOUND OF THE FEMALE PELVIS - COMPLETE REASON FOR EXAM: Female, 38 years old. Metromenorrhagia LMP: 09/18/2018 TECHNIQUE: Transabdominal and Transvaginal TECHNICAL QUALITY: Adequate. COMPARISON: None. FINDINGS: The uterus is anteverted and is in a midline position. The uterus measures 9.5 x 4.8 x 4.7 cm. Isoechoic structure in the cervical lumen measuring 15 x 9 x 9 mm. This could represent a cervical polyp. The endometrium measures 10.5 mm in thickness, and is hyperechoic. There is no demonstrated endometrial mass. There is no demonstrated myometrial mass. I.U.D. - The patient does not have an I.U.D. The right ovary is visualized. The right ovary measures 3.1 x 2.2 x 1.4 cm. A complex right ovary cyst is present measuring 1.5 x 1.3 x 1.3 cm. A simple right ovarian/paraovarian cyst is present measuring 1.8 x 1.8 x 1.6 cm. There is normal arterial and normal venous vascularity. The left ovary is visualized. The left ovary measures 3.3 x 2.3 x 1.7 cm. There is no left ovarian cyst or ovarian mass. There is no visualized left adnexal mass or complex lesion. There is normal arterial and normal venous vascularity. There is no fluid in the cul-de-sac. The pre void volume of the bladder was 324.85 ml. The post void volume of the bladder was ml. Polycystic ovary disease: No. US/Pelvic (Non ) IMPRESSION: Possible cervical polyp measuring up to 15 mm. Complex right ovary cyst measuring up to 15 mm. Simple right ovary/paraovarian cyst measuring up to 18 mm. Electronically Signed: Yobani Parker MD at 10:14 EST Tel , Service support ,
== END ==
PROVIDERS: Family Provider Student in an Organized Health Care Education/Training Program; PCP Student in an Organized Health Care Education/Training Program; Referring Provider Nurse Practitioner Women's Health; Visit Provider Nurse Practitioner Women's Health
DX: N92.1 Excessive and frequent menstruation with irregular cycle (principal)
CPT/HCPCS: 76830; 76856

== ENCOUNTER 2018-11-13 09:29 | Day surgery (SDC) | payer MEDICAID, SELFPAY ==
[2018-09-15 10:30] VITALS: BMI 25.7
[2018-11-05 09:04] VITALS: BMI 25.7
[2018-11-13] VITALS (7 sets, daily range): BP systolic 98–111; BP diastolic 62–75; PULSE 68–88; RESP 14–16; TEMP 36.3–36.7; O2SAT 96–100; BMI 25.8
--- NOTE | 2018-11-13 | EMB_PTH ---
PATIENT: NESSA BARTH [place] [facility] [place][id number] AGE/SX: 38/F ROOM: RE11/13/[address]: Dr. Tonya Arauz MD : 1980 BED: DIS: 11/13/2018 SPEC #: [id number] RECD: 11/13/18 15:04 STATUS: JALEESA ÁNGEL #: [id number] HOLLY: 11/13/18 00:[address]: Tonya Arauz DEPT: SURGICAL PATHOLOGY RECD BY: Robert Blake ENTERED: 11/13/18 15:05 SP TYPE: ENDOM BX/C DANITZA DR: Dr. Emeka Sun, DO Tissues: Endometrium, NOS Procedures: Surgery Specimen Level IV HEADER OPERATION: Hysteroscopy, dilation and curettage PRE-OP DIAGNOSIS: Cervical polyp TISSUE SUBMITTED: Endometrial curettings MICROSCOPIC DIAGNOSIS Endometrium, curettings: Proliferative endometrium. Rare fragments of benign endocervix. Detached fragments of benign squamous mucosa. AM:rivas 11/14/18 MICROSCOPIC DESCRIPTION Slides are reviewed. GROSS DESCRIPTION Received in fixative is one container labeled with the patient's name and designated endometrial curettings. The specimen consists of multiple irregular fragments of red-leos soft tissue that in aggregate measure 2.5 x 2 x 0.2 cm. The specimen is totally submitted in one cassette. / AM:rivas 11/13/18 TC:5 CPT: 69450
--- NOTE | 2018-11-13 11:21 | PCM.OPRPT ---
Problem List (1) Cervical polyp Status: Acute (2) History of cervical dysplasia Status: Acute Comment: LEEP 2013 and neg pap since Report of Operation Date of Procedure: 11/13/18 Pre-Operative Diagnosis: Cervical polyp Post-Operative Diagnosis: Endometrial polyp Surgery/Procedure Performed:: D&C hysteroscopy polypectomy Description of Surgical Findings:: Posterior lower uterine wall polyp Type of Anesthesia:: Local MAC Special Medications: none Specimen's removed: emc Drains: none Estimated Blood Loss (mL): 25 Fluids Replaced: Crystalloid Description of Procedure: Patient was prepped and draped in a normal sterile fashion under MAC anesthesia. A weighted speculum was placed in the vagina and the anterior lip of the cervix was grasped with a single-tooth tenaculum. A paracervical block was placed with 1% lidocaine. Cervix was progressively dilated to allow passage of a 5 mm hysteroscope. The lining was fully visualized and noted to have a posterior endometrial polyp. Uterine sounded to 8 cm. Curettage was performed and moderate amount of tissue was removed, sent to pathology. All instruments were removed from the vagina and excellent hemostasis was noted. Patient was awoken and taken to recovery in stable condition.
--- NOTE | 2018-11-13 11:22 | DCINST_ITS ---
Discharge Diet: No Restrictions Discharge Activity: Return to Normal Activity, May Shower, May Take a Tub Bath Allergies/Adverse Reactions: Allergies hydrocodone bitartrate [From Vicodin] Allergy (Verified 11/06/18 10:05) Nausea/Vom/Diarrhea Medications to take at Discharge rizatriptan 5 mg tablet 5 mg PO .PRN PRN tab 09/15/18 Primary Care Physician: Emeka Sun DO [Primary Care Provider] - Test Results: Test results from this visit will be discussed in further detail at your follow- up appointment, if applicable. Please Follow Up With: Tonya Arauz MD - [phone]
== END 2018-11-13 13:01 | disposition home or self-care (01) ==
LOC: SDC 09:29 → AC 09:31
PROVIDERS: Family Provider Student in an Organized Health Care Education/Training Program; PCP Student in an Organized Health Care Education/Training Program; Referring Provider Obstetrics & Gynecology; Visit Provider Obstetrics & Gynecology
PROC: 0UDB8ZZ Extraction of Endometrium, Via Natural or Artificial Opening Endoscopic (ICD-10-PCS; CPT 58558; principal; 2018-11-13 10:50)
DX: N84.0 Polyp of corpus uteri (principal); Z98.51 Tubal ligation status; F17.200 Nicotine dependence, unspecified, uncomplicated
CPT/HCPCS: 00952; 58558; 88305; J7120; J2405

== ENCOUNTER 2019-05-23 21:21 | Emergency (ER) | payer MEDICAID, SELFPAY ==
[2018-11-27 14:22] VITALS: BMI 25.8
[2019-05-23 21:23] VITALS: BP 164/90; PULSE 95; RESP 18; TEMP 36.4; O2SAT 99; BMI 26.5
--- NOTE | 2019-05-23 21:59 | ED.VISSUMM ---
- ER Visit Summary Date of Service: 05/23/19 Chief Complaint: Food impaction History of Present Illness: The patient is a 39 F who presents with pork chop stuck in her throat. She was eating about 2 hours ago. She feels like something is stuck. Whenever she tries to drink anything even water she regurgitates or vomits it. She has had a similar episode on one prior occasion which spontaneously resolved after an hour. She denies any history of prior similar symptoms. Physical Examination: Afebrile vitals normal No distress resting comfortably Moist mucous membranes Heart regular rate and rhythm Lungs are clear Abdomen soft nontender Alert Test Results: Not indicated Emergency Department Course and Treatment: Patient was treated with IV glucagon. She then had resolution of symptoms and was able to drink without difficulty. Patient discharged. Treatment Plan: [] Disposition: Discharge Impression: Esophageal impaction This note was generated with Espressi dictation software. It may contain incorrect words, spelling, and punctuation that were not noted in review of the chart prior to signing ED Disposition - Plan for ED Patient: Referrals: Emeka Sun DO [Primary Care Provider] -
[2019-05-23] MEDS: Glucagon 1 MG/ML Syringe IV (22:12)
[2019-05-23 22:38] VITALS: RESP 18
--- NOTE | 2019-05-23 22:40 | ED.DEP ---
ED Disposition - Plan for ED Patient: Instructions: ESOPHAGEAL FOREIGN BODY, Resolved Referrals: Emeka Sun DO [Primary Care Provider] -
== END 2019-05-23 22:55 | disposition home or self-care (01) ==
PROVIDERS: Emergency Provider Emergency Medicine; Family Provider Student in an Organized Health Care Education/Training Program; PCP Student in an Organized Health Care Education/Training Program
DX: T18.128A Food in esophagus causing other injury, initial encounter (principal); X58.XXXA Exposure to other specified factors, initial encounter; Y93.89 Activity, other specified; Y92.9 Unspecified place or not applicable; Y99.9 Unspecified external cause status; Z72.0 Tobacco use
CPT/HCPCS: 99282; J7030; A4216; J1610

== ENCOUNTER 2019-05-29 19:32 | Emergency (ER) | payer MEDICAID, SELFPAY ==
[2019-05-29 19:33] VITALS: BP 128/80; PULSE 83; RESP 15; TEMP 36.4; O2SAT 100; BMI 26.6
== END 2019-05-29 20:15 ==
LOC: ED 20:33
PROVIDERS: Emergency Provider Emergency Medicine; Family Provider Student in an Organized Health Care Education/Training Program; PCP Student in an Organized Health Care Education/Training Program
DX: R10.9 Unspecified abdominal pain (principal)

== ENCOUNTER 2020-01-08 09:19 | Emergency (ER) | payer MEDICAID, SELFPAY ==
[2020-01-08 09:19] VITALS: BP 104/69; PULSE 16; TEMP 36.1; BMI 25.7
--- NOTE | 2020-01-08 09:32 | CT_ITS ---
STUDY: CT ABDOMEN AND PELVIS WITHOUT CONTRAST REASON FOR EXAM: Female, 39 years old. UTI SYMPTOMS RADIATION DOSAGE (If Supplied By Facility): CTDIvol = ( 6.56 ) mGy, DLP = ( 314.67 ) mGycm TECHNIQUE: Transaxial images were obtained from the dome of the diaphragm to the symphysis pubis without oral contrast, and without intravenous contrast. Sagittal and coronal images were reconstructed. Individualized dose optimization techniques were used for this CT. COMPARISON: Comparison is made with prior examination dated October 12, 2015. FINDINGS: The visualized lung bases are unremarkable. The visualized portions of the heart are within normal limits. Normal liver. Normal gallbladder and extrahepatic biliary system. Normal spleen. Normal pancreas. Normal bilateral adrenal glands. Normal right kidney. Normal left kidney. Normal visualized stomach. Normal small intestine. Normal colon. The appendix is visualized and appears normal. Normal abdominal aorta. Normal inferior vena cava. Normal retroperitoneum. Normal urinary bladder. Bilateral tubal ligation clips are seen. I suspect a 1.8 cm dominant follicle in the left ovary. Minimal amount of free fluid in the cul-de-sac. There is a small umbilical hernia containing fat. Small benign-appearing bilateral inguinal lymph nodes. Normal osseous structures. CT/Abdomen/Pelvis without Cont IMPRESSION: 1.8 cm follicle in the left ovary. Minimal amount of free fluid in the cul-de-sac. Status post bilateral tubal ligation. Electronically Signed: Thierry Khanna, at 10:30 EDT , Service support ,
--- NOTE | 2020-01-08 09:34 | ED.VIS.GEN ---
History of Present Illness Chief Complaint: Abd Pain Narrative: 39-year-old female presents with right lower quadrant and right flank pain that started 2 hours ago. It was gradual in onset. It has nearly resolved now. It feels somewhat like an ovarian cyst to her, which she has frequently. She notes that it was a few inches higher though than her normal pain so she came to the emergency department for evaluation. She is not nauseated nor vomiting. She has no diarrhea or urinary complaints. No vaginal bleeding or discharge. She denies recent trauma. It has now nearly resolved and is currently mild in severity. Social/past family history-she denies alcohol use, lives with her . Past Medical History - Allergies and Home Meds Allergies/Adverse Reactions: Allergies hydrocodone bitartrate [From Vicodin] Adverse Reaction (Verified 01/08/20 09:21) Nausea/Vom/Diarrhea Primary Care Physician: Emeka Sun DO [Primary Care Provider] - Smoking Status: Unknown if ever smoked Review of Systems General: Denies: Chills, Fever, Sweats Eyes: Denies: Visual changes - bilaterally, Diplopia ENT: Denies: Rhinorrhea, Sore throat Cardiovascular: Denies: Chest pain, Palpitations Respiratory: Denies: Dyspnea, Cough, Dyspnea on exertion Gastrointestinal: Reports: Abdominal pain. Denies: Nausea, Vomiting, Diarrhea, Melena, Hematochezia Genitourinary: Denies: Dysuria, Hematuria, Frequency Musculoskeletal: Denies: Back pain, Extremity Pain Skin: Denies: Rash, Wounds Neurological: Denies: Headache, Weakness, Numbness Physical Exam Vital Signs/Narrative: Vital Signs Temp Pulse BP 01/08/20 09:19 97.0 F L 16 L 104/69 General: Well nourished, Well developed, No Acute Distress Head: Normocephalic, Atraumatic Eyes: Perrl, EOMI ENT: Moist mucous membranes, No rhinorrhea Neck: Supple, Nontender Cardiovascular: Regular rate, Regular rhythm, No murmurs Respiratory: No distress, CTA bilaterally, Chest nontender Abdomen: Soft, Nontender, Nondistended, Normal bowel sounds Back: Nontender, Normal Inspection Extremities: Nontender, No edema Skin: Normal color, No rash Neurological: Alert, Oriented x3, Cranial nerves II-XII grossly intact, Normal Strength, Normal Sensation Psychological: Normal affect, Normal Mood Diagnostic/Tx/Re-eval - Medical Decision Making Urine is unremarkable. CT scan reveals fluid in the cul-de-sac. Her pain has completely resolved. She feels that she might have had a ruptured cyst. No pain at all now so I think ovarian torsion is unlikely. She feels well. She does not feel that she needs an ultrasound and would prefer to go home with close follow-up. She will return here if worse. ED Disposition - Plan for ED Patient: Disposition: Home or Assisted Living Diagnosis: Right sided abdominal pain Instructions: ABDOMINAL PAIN, Unknown Cause, (Female) Referrals: Emeka Sun DO [Primary Care Provider] -
[2020-01-08 09:51] LABS: Bacteria 0 SEEN /hpf (None Seen); Mucous, Urine 0 SEEN /hpf (<or=2+); Red Blood Cells-Urine 0 SEEN /hpf (0-5)
[2020-01-08 09:54] LABS: Color, Urine Yellow (Yellow); Glucose, Dipstick Normal (Normal); Ketone-Dipstick 5 mg/dl (Negative); Leukocyte Esterase-Dipstick 100 /ul (Negative); Nitrite-Dipstick Negative (Negative); Occult Blood-Urine Negative /ul (Negative); Protein-Dipstick 15 mg/dl (Negative); Urine Bilirubin Dipstick Negative (Negative); Urine Clarity Sl. Cloudy (Clear); Urine Urobilinogen 1 mg/dl (Normal)
[2020-01-08 09:58] LABS: Internal QC Validated? YES +Cl - CLEAR BKGD; Pregnancy, Urine Negative Negative
[2020-01-08 10:02] LABS: Squamous Epithelial Cells - UA 5-10 SEEN /hpf (5-10); White Blood Cells 10-25 SEEN /hpf (0-5)
[2020-01-08 10:51] VITALS: BP 112/63; PULSE 75; RESP 16; O2SAT 99
== END 2020-01-08 10:52 | disposition home or self-care (01) ==
PROVIDERS: Emergency Provider Emergency Medicine; PCP Student in an Organized Health Care Education/Training Program
DX: R10.9 Unspecified abdominal pain (principal); Z88.5 Allergy status to narcotic agent
CPT/HCPCS: 74176; 81001; 81025; 99282

== ENCOUNTER 2020-03-06 14:30 | Emergency (ER) | payer MEDICAID, SELFPAY ==
[2020-03-06 14:31] VITALS: BP 112/79; PULSE 89; RESP 16; TEMP 36.6; O2SAT 98; BMI 26.6
--- NOTE | 2020-03-06 14:49 | CT_ITS ---
STUDY: CT ABDOMEN AND PELVIS WITHOUT CONTRAST REASON FOR EXAM: Female, 39 years old. RLQ PAIN RADIATION DOSAGE (If Supplied By Facility): CTDIvol = ( 12.98 ) mGy, DLP = ( 626.81 ) mGycm TECHNIQUE: Transaxial images were obtained from the dome of the diaphragm to the symphysis pubis without oral contrast, and without intravenous contrast. Sagittal and coronal images were reconstructed. Individualized dose optimization techniques were used for this CT. COMPARISON: 01/08/2020 FINDINGS: The visualized lung bases are unremarkable. The visualized portions of the heart are within normal limits. Normal liver. The gallbladder is contracted. Normal spleen. Normal pancreas. Normal bilateral adrenal glands. Normal right kidney. Normal left kidney. Normal visualized stomach. Normal small intestine. Normal colon. The appendix is visualized and appears normal. Normal abdominal aorta. Normal inferior vena cava. Normal retroperitoneum. Normal urinary bladder. Normal visualized uterus. Evidence of prior tubal ligation. 2.8 x 3.7 cm left ovarian cyst. 1.2 x 1.4 cm right ovarian cyst or follicle. Normal abdominal wall. Normal osseous structures. CT/Abdomen/Pelvis W IV Cont ONLY IMPRESSION: Normal appendix. Cystic bilateral adnexa may be further assessed with a pelvic sonogram as clinically indicated. Electronically Signed: Alberto Ortiz, at 16:49 EDT Tel , Service support ,
--- NOTE | 2020-03-06 14:50 | ED.DCSUM_ITS ---
History of Present Illness Chief Complaint: Abd Pain Informant: Patient - Abdominal Pain/Flank Pain Onset: Days - 3 Context: Gradual Onset Timing: Continuous Quality: Aching Location: RLQ - now radiating into right low back Current Severity: Moderate Maximum Severity: Moderate Worsened by: Nothing - except seems a little worse AFTER urinating Relieved by: Nothing - Nausea/Vomiting/Emesis GI Symptom: Negative for: Nausea, Vomiting - Diarrhea/Melena/Hematochezia GI Symptom: Negative for: Diarrhea, Melena, Hematochezia Associated Symptoms: Frequency. Negative for: Dysuria, Hematuria, Urgency Narrative: Gradual onset pain right lower quadrant 3 days ago, started hurting in her right low back today, severity increased some. No nausea or vomiting. Not colicky. Never had this before. No history of kidney stones. Some urinary frequency but no dysuria. No hematuria. No fevers, cough, shortness of breath, chest symptoms. - Past Medical History (1) Ovarian cyst Status: Chronic Past Medical History - Allergies and Home Meds Allergies/Adverse Reactions: Allergies hydrocodone bitartrate [From Vicodin] Adverse Reaction (Verified 03/06/20 14:31) Nausea/Vom/Diarrhea Primary Care Physician: Emeka Sun DO [Primary Care Provider] - Surgical History: - - Bilateral tubal like ectomy Smoking Status: Unknown if ever smoked Review of Systems General: Denies: Chills, Fever, Sweats Eyes: Denies: Visual changes - bilaterally, Diplopia ENT: Denies: Bilateral ear pain, Rhinorrhea, Sore throat Cardiovascular: Denies: Chest pain, Palpitations Respiratory: Denies: Dyspnea, Cough, Dyspnea on exertion Gastrointestinal: Reports: Abdominal pain. Denies: Nausea, Vomiting, Diarrhea, Melena, Hematochezia Genitourinary: Denies: Dysuria, Hematuria, Frequency Musculoskeletal: Reports: Back pain. Denies: Swelling, Extremity Pain Skin: Denies: Rash, Wounds Neurological: Denies: Headache, Weakness, Numbness Physical Exam Vital Signs/Narrative: Vital Signs Temp Pulse Resp BP Pulse Ox 03/06/20 14:31 97.9 F 89 16 112/79 98 Inital Vital Signs reviewed: Yes General: Well nourished, Well developed, No Acute Distress Head: Normocephalic, Atraumatic Eyes: Perrl, EOMI ENT: Moist mucous membranes, No rhinorrhea Neck: Supple, Nontender Cardiovascular: Regular rate, Regular rhythm, No murmurs Respiratory: No distress, CTA bilaterally, Chest nontender Abdomen: Soft, Nondistended, Normal bowel sounds, Tender - RLQ at McBurney's pt, Psoas sign, Obturator sign. Negative for: Guarding, Rebound tenderness, Rovsig's sign, Madison's sign Back: Normal Inspection, CVA tenderness - R only Extremities: Nontender, No edema Skin: Normal color, No rash Neurological: Alert, Oriented x3, Cranial nerves II-XII grossly intact, Normal Strength, Normal Sensation, Normal Gait Psychological: Normal affect, Normal Mood Diagnostic/Tx/Re-eval Impressions Abdomen/Pelvis CT 03/06/20 14:49 IMPRESSION: Normal appendix. Cystic bilateral adnexa may be further assessed with a pelvic sonogram as clinically indicated. Electronically Signed: Alberto Ortiz, at 16:49 EDT Tel , Service support , 03/06/20 14:49 Abdomen/Pelvis W IV Cont ONLY [CT] Stat Laboratory Results 03/06/20 03/06/20 03/06/20 15:10 15:10 15:20 WBC 10.5 RBC 4.40 Hgb 13.2 Hct 38.7 MCV 88.0 MCH 30.0 MCHC 34.1 RDW Std Deviation 40.8 RDW Coeff of [place] 12.8 Plt Count 263 MPV 10.2 Immature Gran % (Auto) 0.300 Neut % (Auto) 60.7 Lymph % (Auto) 29.7 [place] % (Auto) 7.0 Eos % (Auto) 1.9 Baso % (Auto) 0.4 Absolute Neuts (auto) 6.4 Absolute Lymphs (auto) 3.13 Nucleated RBC % 0 Sodium 139 Potassium 3.9 Chloride 110 H Carbon Dioxide 25.0 Anion Gap 4 L BUN 8 Creatinine 0.79 Estim Creat Clear Calc 77.11 Est GFR (MDRD) Af Amer 104 Est GFR (MDRD) Non-Af 86 BUN/Creatinine Ratio 10.1 Glucose 101 Calcium 8.2 L Urine Color Urine Clarity Urine pH Ur Specific [place] Urine Protein Urine Glucose (UA) Urine Ketones Urine Occult Blood Urine Nitrite Urine Bilirubin Urine Urobilinogen Ur Leukocyte Esterase Urine RBC Urine WBC Ur Squamous Epith Cells Urine Bacteria Urine Mucus Urine Test Negative 03/06/20 15:20 WBC RBC Hgb Hct MCV MCH MCHC RDW Std Deviation RDW Coeff of [place] Plt Count MPV Immature Gran % (Auto) Neut % (Auto) Lymph % (Auto) [place] % (Auto) Eos % (Auto) Baso % (Auto) Absolute Neuts (auto) Absolute Lymphs (auto) Nucleated RBC % Sodium Potassium Chloride Carbon Dioxide Anion Gap BUN Creatinine Estim Creat Clear Calc Est GFR (MDRD) Af Amer Est GFR (MDRD) Non-Af BUN/Creatinine Ratio Glucose Calcium Urine Color Straw Urine Clarity Clear Urine pH 6.5 Ur Specific [place] 1.010 Urine Protein Negative Urine Glucose (UA) Normal Urine Ketones Negative Urine Occult Blood Negative Urine Nitrite Negative Urine Bilirubin Negative Urine Urobilinogen Normal Ur Leukocyte Esterase Negative Urine RBC 0 SEEN Urine WBC 0 SEEN Ur Squamous Epith Cells 0-5 SEEN Urine Bacteria 0 SEEN Urine Mucus 0 SEEN Urine Test - Medical Decision Making CT shows a couple of small ovarian cysts bilaterally, actually bigger on the asymptomatic side, a normal appendix, and no urolithiasis. She said prior to the CAT scan she did urinate several times. It is certainly possible she had a small stone and passed it, after Toradol she is asymptomatic and her pain is completely gone. Work-up is fairly unremarkable otherwise. I am not concerned that this is torsion she is very comfortable and does not have a large amount of asymmetry in the ovary or a large mass. Discussed this with her and she is comfortable being discharged home, we discussed reasons to return and ways to treat recurrent pain at home and reasons to follow-up. ED Disposition - Plan for ED Patient: Disposition: Home or Assisted Living Diagnosis: Acute right flank pain Instructions: ED Flank Pain Uncertain Cause Referrals: Emeka Sun DO [Primary Care Provider] - 1 Week if not improving
[2020-03-06] MEDS: Ketorolac 30 MG/ML Syringe IV (15:06)
[2020-03-06] MEDS: 0.9% Normal Saline 1,000 ML 1000 ML IV (15:06)
[2020-03-06] MEDS: Contrast Allergy Safety Check IV (15:07)
[2020-03-06 15:23] LABS: Absolute Lymphocyte Count 3.13 X10^3/uL (0.83-4.51); Absolute Neutrophil Count 6.4 X10^3/uL (2.0-7.7); Basophil# 0.04 X10^3/uL; Basophil% 0.4 % (0-1); Eosinophils% 1.9 % (0-5); Hematocrit 38.7 % (37-47); Hemoglobin 13.2 g/dL (12.0-15.0); Lymphocyte # 3.13 X10^3/ul (4.0); Lymphocyte % 29.7 % (19-41); Mean Corp Hgb Conc 34.1 g/dL (32-36); Mean Platelet Vol. 10.2 fl (6.2-12.0); Monocyte# 0.74 X10^3/uL; NRBC Flagged by Analyzer 0 % (0-5); Neutrophil % 60.7 % (47-70); Platelet Count 263 K/mm3 (150-450); RBC Distribution Width CV 12.8 % (11.6-14.6); RBC Distribution Width SD 40.8 fl (35.1-43.9); White Blood Count 10.5 K/mm3 (4.4-11.0)
[2020-03-06 15:28] LABS: Bacteria 0 SEEN /hpf (None Seen); Mucous, Urine 0 SEEN /hpf (<or=2+); Red Blood Cells-Urine 0 SEEN /hpf (0-5); White Blood Cells 0 SEEN /hpf (0-5)
[2020-03-06 15:32] LABS: Anion Gap 4 (5-15); BUN 8 mg/dL (7-18); BUN/Creat Ratio 10.1 RATIO (10-20); Calcium,Total 8.2 mg/dL (8.5-10.1); Chloride 110 mmol/L (98-107); Creatinine, Serum 0.79 mg/dL (0.55-1.02); EST Glomerular Filtration Rate 86 mL/min (>60); Est Glom Filt Rate - Afr Amer 104 mL/min (>60); Estimated Creatinine Clearance 77.11 ml/min; Glucose 101 mg/dL (74-106); Potassium 3.9 mmol/L (3.5-5.1); Sodium Level 139 mmol/L (136-145)
[2020-03-06 15:39] LABS: Internal QC Validated? YES +Cl - CLEAR BKGD
[2020-03-06 15:42] LABS: Color, Urine Straw (Yellow); Glucose, Dipstick Normal (Normal); Ketone-Dipstick Negative (Negative); Leukocyte Esterase-Dipstick Negative /ul (Negative); Nitrite-Dipstick Negative (Negative); Occult Blood-Urine Negative /ul (Negative); Pregnancy, Urine Negative Negative; Protein-Dipstick Negative (Negative); Urine Bilirubin Dipstick Negative (Negative); Urine Clarity Clear (Clear); Urine Urobilinogen Normal (Normal); Urine pH 6.5 (5.0 - 8.0)
[2020-03-06 15:50] LABS: Squamous Epithelial Cells - UA 0-5 SEEN /hpf (5-10)
[2020-03-06 18:06] VITALS: BP 131/78; PULSE 69; RESP 18; O2SAT 100
== END 2020-03-06 18:18 | disposition home or self-care (01) ==
PROVIDERS: Emergency Provider Emergency Medicine; PCP Student in an Organized Health Care Education/Training Program
DX: R10.31 Right lower quadrant pain (principal); N83.201 Unspecified ovarian cyst, right side; N83.202 Unspecified ovarian cyst, left side; Z88.5 Allergy status to narcotic agent
CPT/HCPCS: 74177; 80048; 81001; 81025; 85025; 96361; 96374; 99283; J7030; Q9967

== ENCOUNTER → 2021-01-02 16:18 | Outpatient (CLI) | payer MEDICAID, SELFPAY ==
[2021-01-02 15:01] VITALS: BMI 26.6
[2021-01-05 19:54] LABS: HPV APTIMA, High Risk Negative (Negative)
== END ==
PROVIDERS: PCP Student in an Organized Health Care Education/Training Program; Referring Provider Nurse Practitioner Women's Health; Visit Provider Nurse Practitioner Women's Health
DX: Z12.4 Encounter for screening for malignant neoplasm of cervix (principal)
CPT/HCPCS: 87624; 88175; G0145

== ENCOUNTER → 2021-08-08 15:27 | Outpatient (CLI) | payer OTHER, MEDICAID, SELFPAY ==
[2021-08-08 15:41] LABS: Absolute Lymphocyte Count 3.42 X10^3/uL (0.83-4.51); Absolute Neutrophil Count 5.7 X10^3/uL (2.0-7.7); Basophil# 0.04 X10^3/uL; Basophil% 0.4 % (0-1); Eosinophil# 0.16 X10^3/uL; Eosinophils% 1.6 % (0-5); Hematocrit 39.4 % (37-47); Hemoglobin 12.9 g/dL (12.0-15.0); Lymphocyte # 3.42 X10^3/ul (0.83-4.51); Lymphocyte % 34.5 % (19-41); Mean Corp Hgb Conc 32.7 g/dL (32-36); Mean Corpuscular Hgb 29.7 pg (27.0-32.0); Mean Corpuscular Volume 90.8 fL (81-99); Mean Platelet Vol. 10.3 fl (6.2-12.0); Monocyte# 0.58 X10^3/uL; Monocyte% 5.9 % (0-10); NRBC Flagged by Analyzer 0 % (0-5); Neutrophil # 5.66 X10^3/uL (2.7-7.7); Neutrophil % 57.2 % (47-70); Platelet Count 280 K/mm3 (150-450); RBC Distribution Width CV 12.3 % (11.6-14.6); RBC Distribution Width SD 41.1 fl (35.1-43.9); Red Blood Count 4.34 M/mm3 (4.2-5.4); White Blood Count 9.9 K/mm3 (4.4-11.0)
[2021-08-08 16:05] LABS: Thyroid Stim Hormone (TSH) 1.79 uIU/mL (0.358-3.74)
== END ==
PROVIDERS: PCP Student in an Organized Health Care Education/Training Program; Referring Provider Nurse Practitioner Women's Health; Visit Provider Nurse Practitioner Women's Health
DX: N93.9 Abnormal uterine and vaginal bleeding, unspecified (principal); Z13.29 Encounter for screening for other suspected endocrine disorder
CPT/HCPCS: 36415; 84443; 85025

== ENCOUNTER → 2021-08-16 07:27 | Outpatient (CLI) | payer OTHER, MEDICAID, SELFPAY ==
--- NOTE | 2021-08-16 07:29 | US_ITS ---
STUDY: ULTRASOUND OF THE FEMALE PELVIS - COMPLETE REASON FOR EXAM: Female, 41 years old. AUB LMP: 07/30/2021. TECHNIQUE: Transabdominal and Transvaginal TECHNICAL QUALITY: Adequate. COMPARISON: Comparison is made with prior study dated 09/23/2018. FINDINGS: The uterus is anteverted and is in a midline position. The uterus measures 8.4 cm x 4.7 cm x 4.3 cm. There is a Nabothian cyst of the cervix. The endometrium measures 7.2 mm in thickness, and is heterogeneous (striated). Heterogeneous appearance of the endometrium with a tiny calcifications within it. Heterogeneous appearance of the myometrium although no focal fibroid is seen and this most likely represents fibrotic change. I.U.D. - The patient does not have an I.U.D. The right ovary is visualized. The right ovary measures 3.2 cm x 1.9 cm x 1.9 cm. A follicle is seen within the right ovary measuring 1.6 cm x 1.5 cm x 1.8 cm. There is no visualized right adnexal mass or complex lesion. There is normal arterial and normal venous vascularity. The left ovary is visualized. The left ovary measures 3.7 cm x 1.8 cm x 1.9 cm. There is no left ovarian cyst or ovarian mass. There is no visualized left adnexal mass or complex lesion. There is normal arterial and normal venous vascularity. There is no fluid in the cul-de-sac. The pre void volume of the bladder was 239 ml. US/Transvaginal Non- IMPRESSION: Heterogeneous appearance of the endometrium and the myometrium suggestive of fibrotic change although no focal fibroids are seen. Dominant follicle is seen in the right ovary. Electronically Signed: Thierry Khanna MD at 9:08 EDT , Service support ,
--- NOTE | 2021-08-16 07:29 | US_ITS ---
STUDY: ULTRASOUND OF THE FEMALE PELVIS - COMPLETE REASON FOR EXAM: Female, 41 years old. AUB LMP: 07/30/2021. TECHNIQUE: Transabdominal and Transvaginal TECHNICAL QUALITY: Adequate. COMPARISON: Comparison is made with prior study dated 09/23/2018. FINDINGS: The uterus is anteverted and is in a midline position. The uterus measures 8.4 cm x 4.7 cm x 4.3 cm. There is a Nabothian cyst of the cervix. The endometrium measures 7.2 mm in thickness, and is heterogeneous (striated). Heterogeneous appearance of the endometrium with a tiny calcifications within it. Heterogeneous appearance of the myometrium although no focal fibroid is seen and this most likely represents fibrotic change. I.U.D. - The patient does not have an I.U.D. The right ovary is visualized. The right ovary measures 3.2 cm x 1.9 cm x 1.9 cm. A follicle is seen within the right ovary measuring 1.6 cm x 1.5 cm x 1.8 cm. There is no visualized right adnexal mass or complex lesion. There is normal arterial and normal venous vascularity. The left ovary is visualized. The left ovary measures 3.7 cm x 1.8 cm x 1.9 cm. There is no left ovarian cyst or ovarian mass. There is no visualized left adnexal mass or complex lesion. There is normal arterial and normal venous vascularity. There is no fluid in the cul-de-sac. The pre void volume of the bladder was 239 ml. US/Pelvic (Non ) IMPRESSION: Heterogeneous appearance of the endometrium and the myometrium suggestive of fibrotic change although no focal fibroids are seen. Dominant follicle is seen in the right ovary. Electronically Signed: Thierry Khanna MD at 9:08 EDT , Service support ,
== END ==
PROVIDERS: PCP Student in an Organized Health Care Education/Training Program; Referring Provider Nurse Practitioner Women's Health; Visit Provider Nurse Practitioner Women's Health
DX: N93.9 Abnormal uterine and vaginal bleeding, unspecified (principal)
CPT/HCPCS: 76830; 76856

== ENCOUNTER → 2024-03-26 | Outpatient (CLI) | payer BC, SELFPAY ==
--- NOTE | 2024-03-26 | TISS_PTH ---
PATIENT: NESSA BARTH LOC: [facility] U#:[id number] AGE/SX: 44/F ROOM: RE03/26/[address]: Dr. Cristy Lino DO : 1980 BED: DIS: 03/26/2024 SPEC #: [id number] RECD: 03/26/24 18:29 STATUS: JALEESA NEAL #: [id number] HOLLY: 03/26/24 00:[address]: Cristy Lino DEPT: SURGICAL PATHOLOGY RECD BY: Braeden Boone ENTERED: 03/27/24 07:19 SP TYPE: Tissue Bx DANITZA DR: Dr. Emeka Sun DO Tissues: TISSUE SURGICALLY REMOVED Procedures: Surgery Specimen Level IV HEADER OPERATION: Skin tag removal PRE-OP DIAGNOSIS: Skin tag of vaginal mucosa TISSUE SUBMITTED: Vaginal mucosa MICROSCOPIC DIAGNOSIS Vaginal mucosa, biopsy: Benign fibro-epithelial polyp, inflamed. See comment. SERA/ 03/30/24 COMMENT Immunohistochemistry ([id number]) for surrogate HPV marker (p16) is negative and supports the above diagnosis. Case has been reviewed in consultation with Dr. Caro who concurs with the above diagnosis. IDC:[id number] MICROSCOPIC DESCRIPTION Slides are reviewed. GROSS DESCRIPTION Received is one container labeled with the patient's name and not further designated. The specimen consists of a polypoid piece of leos-white skin measuring 1.0 x 0.6 x 0.3cm. The specimen is inked, bisected and submitted entirely in one cassette. JUAN/ 03/27/2024 TC:1 CPT:46911
--- NOTE | 2024-03-26 | IMM_PTH ---
PATIENT: NESSA BARTH LOC: [facility] U#:[id number] AGE/SX: 44/F ROOM: RE03/26/[address]: Dr. Cristy Lino DO : 1980 BED: DIS: 03/26/2024 SPEC #: [id number] RECD: 03/30/24 12:50 STATUS: JALEESA REMary #: [id number] HOLLY: 03/26/24 00:[address]: Cristy Lino DEPT: IMMUNOHISTOCHEMISTRY RECD BY: Tino Leyva ENTERED: 03/30/24 12:50 SP TYPE: IMMUNO OTHR DR: Dr. Emeka Sun DO Tissues: TISSUE SURGICALLY REMOVED Procedures: p16 (initial) KI-67 (add) PHYSICIAN & [place] [id number] SPECIMEN INFORMATION: Tissue Source: Vaginal mucosa Clinical Info: Skin tag of vaginal mucosa Specimen Number: [id number] CPT code: 98275,73247 METHODOLOGY: Deparaffinized sections of prefer/formalin-fixed tissue or PAP/DQ stained slides are incubated with monoclonal/polyclonal antibodies/oligonucleotide probes. Localization is made via biotin free immunoperoxidase method. Appropriate controls are performed and reacted as expected. Results on target cell population are indicated in the following table: RESULTS: ANTIBODY / CLONE RESULT P16 (E6H4) negative Ki-67 (30-9) positive, low These tests were developed and their performance characteristics determined by [facility]. They may not have been cleared or approved by the [place]. Food and Drug Administration. The FDA has determined that such clearance or approval is not necessary. The above immunohistochemical/dualISH markers are ordered and reviewed by the Pathologist. INTERPRETATION: Vaginal mucosa, removal: No evidence of viral cytopathic change. SERA/ 03/31/2024
== END | disposition home or self-care (01) ==
PROVIDERS: PCP Student in an Organized Health Care Education/Training Program; Referring Provider Obstetrics & Gynecology; Visit Provider Obstetrics & Gynecology
DX: L91.8 Other hypertrophic disorders of the skin (principal)
CPT/HCPCS: 88305; 88341; 88342